=== PATIENT | female | born 2005 | race Caucasian/White ===

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

== ENCOUNTER 2024-07-08 12:53 | Emergency (ER) | payer MEDICAID, SELFPAY ==
--- NOTE | 2024-07-08 13:07 | ECG_ITS ---
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 Measurements Intervals [place] Rate: 75 P: 62 [place]: 157 QRS: 81 QRSD: 88 T: 41 QT: 351 QTc: 394 Interpretive Statements SINUS RHYTHM WITH SINUS ARRHYTHMIA SEPTAL MYOCARDIAL INFARCTION , OF INDETERMINATE AGE [40+ ms Q WAVE IN V1/V2] No previous ECG available for comparison Electronically Signed On 07-09-2024 07:46:22 CDT by Kavon Goncalves M.D. [id number]
--- NOTE | 2024-07-08 13:23 | XRR_ITS ---
PROCEDURE INFORMATION: Exam: XR Chest Exam date and time: 07/08/2024 8:53 PM Age: 19 years old Clinical indication: Chest pressure; Chest pain TECHNIQUE: Imaging protocol: Radiologic exam of the chest. Views: 1 view. COMPARISON: No relevant prior studies available. FINDINGS: Lungs: Unremarkable. No consolidation. Pleural spaces: Unremarkable. No pleural effusion. No pneumothorax. Heart/Mediastinum: Unremarkable. No cardiomegaly. Bones/joints: Unremarkable. XR/XR chest 1V portable [id number] IMPRESSION: No acute cardiopulmonary findings.
[2024-07-08 13:28] VITALS: BP 118/81; PULSE 82; RESP 18; TEMP 36.5; O2SAT 100; BMI 37.8
[2024-07-08 18:13] VITALS: PULSE 79; O2SAT 96
[2024-07-08 19:32] LABS: Basophils % 0.2 %; Eosinophils # 0.1 10^3/uL (0.0-0.8); Eosinophils % 0.8 %; Hematocrit 43.4 % (36-47); Lymphocytes % 29.5 %; Mean Corpuscular Hemoglobin 28.1 pg (27-33); Mean Corpuscular Volume 87.9 fl (85-98); Mean Platelet Volume 10.6 fL (7.4-10.4); Monocytes # 0.4 10^3/uL (0.2-0.9); Monocytes % 4.4 %; Neutrophils # 6.55 10^3/uL (1.8-8.0); Neutrophils % 64.7 %; Nucleated Red Blood Cells % 0 %; Platelet Count 339 10^3/cmm (157-399); Red Blood Count 4.94 10^6/uL (3.85-5.65); Red Cell Distribution Width 13.4 % (12.1-15.1); White Blood Count 10.11 10^3/uL (4.5-13.0)
[2024-07-08 19:46] LABS: Blood Urea Nitrogen 12 mg/dL (6-20); Calcium 9.7 mg/dL (8.5-10.5); Carbon Dioxide 24 mmol/L (22-29); Chloride 105 mmol/L (98-107); Creatinine Clr Calc Pharmacy 206.0853; Glomerular Filtration Rate 157.3 mL/min (90-130); Glucose 85 mg/dL (65-115); Osmolality Calculated 291 mOsm/kg (285-295); Sodium 141 mmol/L (136-145)
[2024-07-08 21:05] VITALS: BP 126/88; PULSE 82; RESP 16; O2SAT 99
[2024-07-08 21:30] VITALS: BP 126/88; O2SAT 98
[2024-07-08 22:00] VITALS: BP 126/88; O2SAT 100
[2024-07-08 22:25] LABS: Troponin(5th) Baseline < 6 ng/L (0-10)
[2024-07-08 22:34] VITALS: BP 126/88; PULSE 78; RESP 16; O2SAT 100
--- NOTE | 2024-07-08 23:34 | ED_ITS ---
HPI - Chest Pain 2 General: Chief Complaint: Chest Pain Stated Complaint: sharp chest pains Time Seen by Provider: 07/08/24 20:13 Source: patient Mode of arrival: ambulatory Limitations: no limitations History of Present Illness: Patient is a 19-year-old female who presents the emergency department complaining of chest pain since this morning. States that she awoke with the pain, she has had this pain intermittently for months. It is to the left chest radiating down left arm, has been constant since onset. She does state that it was significantly worse on her drive to the ED, and it brought her to tears. She states that she has been stressed out more recently from school, has no personal cardiac history. She does take atenolol as well as Lexapro for anxiety. She had no other associated symptoms with this pain. Vitals are within normal limits at this time. No specific alleviating and exacerbating factors noted. Still stating that the pain is present at time of examination. MD complaint: chest pain Onset (ago): hour(s) Timing of current episode: constant Prior episodes: Yes Onset: awoke with symptoms Pain location: left chest Pain radiation: left arm Severity: severe Quality: sharp and shooting Relieving factors: nothing Exacerbating factors: nothing Associated symptoms: Deny abdominal pain, dyspnea, fever(s), nausea, palpitations or vomiting Related Data Home Medications ?Medication ?Instructions ?Recorded ?Confirmed atenolol 25 mg tablet 25 mg PO DAILY 03/27/2310/11 escitalopram oxalate 10 mg tablet 10 mg PO DAILY 03/2708/24/23 multivitamin (Multiple Vitamins 1 tab PO DAILY 3 08/24/23 tablet) olanzapine 5 mg tablet 10 mg PO DAILY 03/27/2310/11 Allergies Allergy/AdvReac Type Severity Reaction Status Date / Time No Known Allergies Allergy Unverified 08/24/23 08:00 Review of Systems 2 General: Reports: 10 or more systems reviewed and unremarkable except in HPI and below Const: Denies: fever(s), chills or fatigue Eyes: Denies: change in vision ENMT: Denies: throat pain, ear or mastoid pain or nasal discharge Card: Reports: chest pain; Denies: palpitations, swelling of feet/ankles or lightheadedness Resp: Denies: dyspnea, productive cough or wheezing GI: Denies: abdominal pain, nausea, vomiting, diarrhea or constipation : Denies: flank pain, difficulty voiding, dysuria or urinary frequency Musc: Reports: extremity pain (Left arm); Denies: neck pain, back pain or joint pain Skin/Breast: Denies: rash Neuro: Denies: headache(s), numbness in extremities or weakness in extremities Physical Exam 2 Const: COMMON NORMALS: no acute distress, patient oriented x3 and no limitations GENERAL APPEARANCE: cooperative, well developed and anxious O RIENTATION/CONSCIOUSNESS: Yes awake, Yes oriented to person, Yes oriented to place and Yes oriented to time HENMT: COMMON NORMALS: normocephalic, atraumatic and hearing grossly normal bilaterally HEAD & SCALP: normocephalic and atraumatic Eye: COMMON NORMALS: Equal, round and reactive pupils present, EOMs intact bilaterally and conjunctivae normal CONJUNCTIVA: Yes conjunctivae normal P UPIL: Yes Equal, round and reactive pupils present Neck/C-Spine: COMMON NORMALS: full ROM, supple and no JVD Resp: COMMON NORMALS: normal respiratory effort, No retractions, No use of accessory muscles and clear to auscultation bilaterally AUSCULTATION: clear to auscultation bilaterally Cardio: COMMON NORMALS: no JVD, regular rate, regular rhythm, No clicks present (Cardio), No murmurs present (Cardio) and No rub (Cardio) RATE: r egular rate RHYTHM: regular rhythm GI: COMMON NORMALS: Normal to inspection, nondistended, normoactive bowel sounds present, Soft to palpation and non-tender AUSCULTATION: Yes normoactive bowel sounds PALPATION: Yes Soft to palpation RECTAL EXAM: d eferred Extremity: COMMON NORMALS: normal to inspection, full ROM and capillary refill normal Neuro: COMMON NORMALS: patient oriented x3, moves all extremities, no focal motor deficits and no sensory deficits noted SENSORIUM/ORIENTATION: Yes oriented to person, Yes oriented to place and Yes oriented to time Psych: COMMON NORMALS: mental status grossly normal and Normal thought process present THOUGHT PROCESS: Normal thought process present Skin: COMMON NORMALS: no rashes or lesions noted GENERAL SKIN EXAM: no rashes or lesions noted Course 2 Vital Signs: Vital signs: Vital Signs Temperature 97.7 F 07/08/24 13:28 Pulse Rate 78 07/08/24 22:34 Respiratory Rate 16 07/08/24 22:34 Blood Pressure 126/88 07/08/24 22:34 Pulse Oximetry 100 07/08/24 22:34 Oxygen Delivery Me thod Room Air 07/08/24 13:28 MDM - Chest Pain Medical Decision Making Presented with chest pain since this morning, history of similar. Exam unremarkable, patient obviously anxious. Blood work was normal which included a normal troponin. EKG unremarkable and chest x-ray normal. Do not suspect ACS or cardiac chest pain, I suspect anxiety potentially GERD/musculoskeletal. Informed her to follow-up with her regular doctor and return with any new or worsening. She is to continue taking home medications. Vitals have been normal throughout ED stay. Lab Data 07/08/24 19:16 07/08/24 19:16 Radiology Impressions Chest X-Ray 07/08/24 13:23 IMPRESSION: No acute cardiopulmonary findings. Laboratory Results WBC 10.11 10^3/uL (4.5-13.0) 07/08/24 19:16 RBC 4.94 10^6/uL (3.85-5.65) 07/08/24 19:16 Hgb 13.90 g/dL (12.4-14.8) 07/08/24 19:16 Hct 43.4 % (36-47) 07/08/24 19:16 MCV 87.9 fl (85-98) 07/08/24 19:16 MCH 28.1 pg (27-33) 07/08/24 19:16 MCHC 32.0 g/dL (30-55) 07/08/24 19:16 RDW 13.4 % (12.1-15.1) 07/08/24 19:16 Plt Count 339 10^3/cmm (157-399) 07/08/24 19:16 MPV 10.6 fL (7.4-10.4) H 07/08/24 19:16 Neut % (Auto) 64.7 % 07/08/24 19:16 Lymph % (Auto) 29.5 % 07/08/24 19:16 [place] % (Auto) 4.4 % 07/08/24 19:16 Eos % (Auto) 0.8 % 07/08/24 19:16 Baso % (Auto) 0.2 % 07/08/24 19:16 Neut # (Auto) 6.55 10^3/uL (1.8-8.0) 07/08/24 19:16 Lymph # (Auto) 3.0 10^3/uL (1.5-6.5) 07/08/24 19:16 [place] # (Auto) 0.4 10^3/uL (0.2-0.9) 07/08/24 19:16 Eos # (Auto) 0.1 10^3/uL (0.0-0.8) 07/08/24 19:16 Baso # (Auto) 0.0 10^3/uL (0.0-0.1) 07/08/24 19:16 Nucleated RBC % (auto) 0 % 07/08/24 19:16 Nucleated RBCs # 0.0 /100WBC 07/08/24 19:16 Sodium 141 mmol/L (136-145) 07/08/24 19:16 Potassium 4.0 mmol/L (3.5-5.1) 07/08/24 19:16 Chloride 105 mmol/L (98-107) 07/08/24 19:16 Carbon Dioxide 24 mmol/L (22-29) 07/08/24 19:16 Anion Gap 16.0 (5-19) 07/08/24 19:16 BUN 12 mg/dL (6-20) 07/08/24 19:16 Creatinine 0.5 mg/dL (0.5-0.9) 07/08/24 19:16 GFR Calculation 157.3 mL/min (90-130) H 07/08/24 19:16 Glucose 85 mg/dL (65-115) 07/08/24 19:16 Calculated Osmolality 291 mOsm/kg (285-295) 07/08/24 19:16 Calcium 9.7 mg/dL (8.5-10.5) 07/08/24 19:16 Troponin T Baseline < 6 ng/L (0-10) 07/08/24 19:16 All radiology interpretation(s) finalized by discharge Discharge Plan Discharge Patient Disposition: Home Clinical Impression: Chest pain, Anxiety Condition: Stable Prescriptions: No Action atenolol 25 mg tablet 25 mg PO DAILY olanzapine 5 mg tablet 10 mg PO DAILY escitalopram oxalate 10 mg tablet 10 mg PO DAILY multivitamin [Multiple Vitamins] Tablet 1 tab PO DAILY Discharge Orders: Discharge ED (Routine); Ordered 07/08/24 Ordered By: Alvaro Jordan Activity Restrictions/Additional Instructions: Please continue taking your home medications. Follow-up with your regular doctor back home. Return with any new or worsening. Stand Alone Forms: Work/School Release Print Language: Greenlandic Coding Level of Care Code ED Ultrasound Applications Specialist for Hugh Jackson
--- NOTE | 2024-07-08 23:49 | ECG_ITS ---
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 Measurements Intervals [place] Rate: 75 P: 55 [place]: 161 QRS: 70 QRSD: 81 T: 7 QT: 358 QTc: 401 Interpretive Statements SINUS RHYTHM WITH SINUS ARRHYTHMIA NONSPECIFIC T-WAVE ABNORMALITY Compared to ECG 07/08/2024 13:07:48 T-wave abnormality now present Myocardial infarct finding no longer present Electronically Signed On 07-09-2024 07:44:54 CDT by Kavon Goncalves M.D. [email or web address]
== END 2024-07-08 22:35 | disposition home or self-care (01) ==
PROVIDERS: Emergency Medicine; Emergency Provider Physician Assistant
DX: R07.9 Chest pain, unspecified (principal); F41.9 Anxiety disorder, unspecified
CPT/HCPCS: 36415; 71045; 80048; 84484; 85025; 93005; 99285